=== PATIENT | male | born 1940 | race Caucasian/White ===

== ENCOUNTER 2023-05-16 10:03 | Day surgery (SDC) | payer OTHER, MEDICARE ==
[~2023-05-16 10:03] MED LIST: FERRIC CARBOXYMALTOSE 750 MG in SODIUM CHLORIDE 250 ML IVPB ONE
[2023-05-16 14:17] VITALS: TEMP 98.2
[2023-05-16 14:20] VITALS: BP 120/66; PULSE 52; RESP 18
== END 2023-05-16 12:20 | disposition home or self-care (01) ==
LOC: JONCNONCHE 10:03 → J7W 10:08 → JONCNONCHE 12:20
PROVIDERS: ATTEND Internal Medicine Hematology & Oncology
PROC: 3E033GC Introduction of Other Therapeutic Substance into Peripheral Vein, Percutaneous Approach (ICD-10-PCS; principal; 2023-05-16)
DX: D50.0 Iron deficiency anemia secondary to blood loss (chronic) (principal)
CPT/HCPCS: 96365; J1439

== ENCOUNTER 2023-05-23 10:15 | Day surgery (SDC) | payer OTHER, MEDICARE ==
[2023-05-23 11:38] LABS: HEMATOCRIT 23.2 % (35.4-49); HEMOGLOBIN 7.6 GM/dL (11.7-16.9); MCH 29.8 pg (25.7-33.7); MCHC 32.9 g/dl (32.0-35.9); MEAN CELL VOLUME 90.8 fl (80-96); MEAN PLT VOLUME 10.8 fl (7.5-11.1); PLATELET COUNT 103 10^3/uL (134-434); RBC 2.56 M/mm3 (4.00-5.60); RDW 19.1 % (11.9-15.9)
[2023-05-23 11:42] LABS: WHITE BLOOD COUNT 1.5 K/mm3 (4.0-10.0)
[2023-05-23 12:12] LABS: ANISOCYTOSIS 3+; MACROCYTOSIS 0
[2023-05-23 18:39] VITALS: BP 136/91; PULSE 60; RESP 18; TEMP 98.3
== END 2023-05-23 17:40 | disposition home or self-care (01) ==
LOC: JONCNONCHE 10:15 → J7W 10:15 → JONCNONCHE 17:40
PROVIDERS: ATTEND Internal Medicine Hematology & Oncology
PROC: 3E033GC Introduction of Other Therapeutic Substance into Peripheral Vein, Percutaneous Approach (ICD-10-PCS; principal; 2023-05-23)
DX: D50.9 Iron deficiency anemia, unspecified (principal)
CPT/HCPCS: 36415; 85025; 96365; J1439

== ENCOUNTER 2023-08-30 07:58 | Day surgery (SDC) | payer OTHER, MEDICARE ==
[2023-08-30 08:26] VITALS: BP 140/41; PULSE 58; RESP 20; TEMP 98.3
== END 2023-08-30 13:30 | disposition home or self-care (01) ==
LOC: JONCBLOOD 07:58 → J7W 08:01 → JONCBLOOD 13:30
PROVIDERS: ATTEND Internal Medicine Hematology & Oncology
PROC: 30233N1 Transfusion of Nonautologous Red Blood Cells into Peripheral Vein, Percutaneous Approach (ICD-10-PCS; principal; 2023-08-30)
DX: D46.9 Myelodysplastic syndrome, unspecified (principal); D50.9 Iron deficiency anemia, unspecified
CPT/HCPCS: 36430; 86850; 86900; 86901; 86922; P9058

== ENCOUNTER 2023-10-23 10:06 | Day surgery (SDC) | payer OTHER, MEDICARE ==
[~2023-10-23 10:06] MED LIST changes: +DECITABINE (DACOGEN) 10 MG/1 ML SQ SQ ONE; -FERRIC CARBOXYMALTOSE 750 MG in SODIUM CHLORIDE 250 ML IVPB ONE
[2023-10-23 11:01] LABS: HEMATOCRIT 19.4 % (35.4-49); MCH 30.2 pg (25.7-33.7); MCHC 32.2 g/dl (32.0-35.9); MEAN CELL VOLUME 93.8 fl (80-96); MEAN PLT VOLUME 10.2 fl (7.5-11.1); PLATELET COUNT 83 10^3/uL (134-434); RBC 2.07 M/mm3 (4.00-5.60); RDW 19.4 % (11.9-15.9)
[2023-10-23 11:08] LABS: WHITE BLOOD COUNT 0.7 K/mm3 (4.0-10.0)
[2023-10-23 11:09] LABS: HEMOGLOBIN 6.3 GM/dL (11.7-16.9)
[2023-10-23 11:16] LABS: POTASSIUM 4.8 mmol/L (3.5-5.1)
[2023-10-23 11:18] LABS: BLOOD UREA NITROGEN 34.1 mg/dL (7-18); CALCIUM 9.4 mg/dL (8.5-10.1)
[2023-10-23 11:22] LABS: CREATININE 1.2 mg/dL (0.55-1.3)
[2023-10-23 12:12] LABS: ALBUMIN 3.5 g/dl (3.4-5.0)
[2023-10-23 12:15] LABS: BILIRUBIN,DIRECT 0.1 mg/dL (0.0-0.2)
[2023-10-23 12:16] LABS: BILIRUBIN,TOTAL 0.2 mg/dL (0.2-1)
[2023-10-23 18:03] VITALS: RESP 20
[2023-10-23 18:13] VITALS: BP 108/74; PULSE 52; TEMP 98.8
== END 2023-10-23 16:40 | disposition home or self-care (01) ==
LOC: JONCNONCHE 10:06
PROVIDERS: ATTEND Internal Medicine Hematology & Oncology
DX: D46.9 Myelodysplastic syndrome, unspecified (principal)
CPT/HCPCS: 36415; 36430; 80048; 80076; 83615; 85025; 85045; 86850; 86900; 86901; 86922; 96372; J0894; P9058

== ENCOUNTER 2023-10-30 09:48 | Day surgery (SDC) | payer OTHER, MEDICARE ==
[2023-10-30 10:24] LABS: HEMATOCRIT 23.5 % (35.4-49); HEMOGLOBIN 7.8 GM/dL (11.7-16.9); MCH 30.2 pg (25.7-33.7); MEAN CELL VOLUME 91.4 fl (80-96); MEAN PLT VOLUME 9.6 fl (7.5-11.1); PLATELET COUNT 61 10^3/uL (134-434); RBC 2.57 M/mm3 (4.00-5.60); RDW 19.7 % (11.9-15.9); RETICULOCYTES 2.22 % (0.5-1.5)
[2023-10-30 10:29] LABS: WHITE BLOOD COUNT 0.7 K/mm3 (4.0-10.0)
[2023-10-30 10:40] LABS: CALCIUM 9.4 mg/dL (8.5-10.1); POTASSIUM 4.6 mmol/L (3.5-5.1)
[2023-10-30 10:44] LABS: CREATININE 1.2 mg/dL (0.55-1.3)
[2023-10-30 11:28] LABS: ALBUMIN 3.4 g/dl (3.4-5.0)
[2023-10-30 11:30] LABS: BILIRUBIN,DIRECT 0.1 mg/dL (0.0-0.2)
[2023-10-30 11:32] LABS: BILIRUBIN,TOTAL 0.3 mg/dL (0.2-1); TOT PROT 7.9 g/dl (6.4-8.2)
[2023-10-30 11:47] LABS: ANISOCYTOSIS 0; MACROCYTOSIS 0; ROULEAU 1+
[2023-10-30] MEDS: DECITABINE (DACOGEN) 10 MG/1 ML SQ SQ ONE (12:04)
[2023-10-30 15:28] VITALS: BP 136/60; PULSE 59; RESP 18; TEMP 97.6
== END 2023-10-30 12:35 | disposition home or self-care (01) ==
LOC: JONCNONCHE 09:48 → J7W 09:49 → JONCNONCHE 12:35
PROVIDERS: ATTEND Internal Medicine Hematology & Oncology
DX: Z51.11 Encounter for antineoplastic chemotherapy (principal); D46.9 Myelodysplastic syndrome, unspecified
CPT/HCPCS: 36415; 80048; 80053; 82248; 83615; 85025; 85045; 86850; 86900; 86901; 96401; J0894

== ENCOUNTER 2023-11-05 04:49 | Emergency (ER) | payer OTHER, MEDICARE ==
[2023-11-05 05:10] VITALS: BMI 28.4
[2023-11-05] MEDS ORDERED: ACETAMINOPHEN 325 MG TABLET (FP) ONE (05:39)
[2023-11-05] MEDS: ACETAMINOPHEN 500 MG TABLET (FP) PO ONE (05:48)
[2023-11-05 06:26] LABS: HEMATOCRIT 21.1 % (35.4-49); MCH 30.2 pg (25.7-33.7); MEAN CELL VOLUME 91.3 fl (80-96); MEAN PLT VOLUME 9.8 fl (7.5-11.1); PLATELET COUNT 58 10^3/uL (134-434); RBC 2.31 M/mm3 (4.00-5.60); RDW 20.5 % (11.9-15.9)
[2023-11-05 06:32] LABS: WHITE BLOOD COUNT 0.6 K/mm3 (4.0-10.0)
[2023-11-05 06:38] LABS: POTASSIUM 4.4 mmol/L (3.5-5.1)
[2023-11-05 06:40] LABS: CALCIUM 9.6 mg/dL (8.5-10.1)
[2023-11-05 06:41] LABS: ALBUMIN 3.2 g/dl (3.4-5.0)
[2023-11-05 06:44] LABS: CREATININE 1.1 mg/dL (0.55-1.3)
[2023-11-05 06:46] LABS: BILIRUBIN,TOTAL 0.4 mg/dL (0.2-1)
[2023-11-05 10:15] LABS: ANISOCYTOSIS 1+; MACROCYTOSIS 1+
[2023-11-05 11:34] VITALS: BP 146/60; PULSE 71; RESP 17; TEMP 97.2
== END 2023-11-05 13:55 | disposition short-term general hospital (02) ==
LOC: JER 04:49
DX: S27.1XXA Traumatic hemothorax, initial encounter (principal); S22.42XA Multiple fractures of ribs, left side, initial encounter for closed fracture; S22.039A Unspecified fracture of third thoracic vertebra, initial encounter for closed fracture; S00.03XA Contusion of scalp, initial encounter; R07.89 Other chest pain; M25.512 Pain in left shoulder; M54.50 Low back pain, unspecified; W19.XXXA Unspecified fall, initial encounter; Z20.822 Contact with and (suspected) exposure to COVID-19
CPT/HCPCS: 0241U-QW; 36415; 70450-TC; 71045-TC-FY; 72125-TC; 72128-TC; 72131-TC; 72170-TC-FY; 73030-TC-LT-FY; 80053; 84484; 85025; 93005; 93010; 99285-25

== ENCOUNTER 2023-12-17 09:36 | Day surgery (SDC) | payer OTHER, MEDICARE ==
[2023-12-17 10:21] VITALS: BP 110/44; PULSE 57; RESP 20; TEMP 98.7
== END 2023-12-17 15:51 | disposition home or self-care (01) ==
LOC: J7W 09:36 → JONCBLOOD 09:36
PROVIDERS: ATTEND Internal Medicine Hematology & Oncology
PROC: 30233N1 Transfusion of Nonautologous Red Blood Cells into Peripheral Vein, Percutaneous Approach (ICD-10-PCS; principal; 2023-12-17)
DX: D46.9 Myelodysplastic syndrome, unspecified (principal)
CPT/HCPCS: 36430; 86850; 86900; 86901; 86922; P9058

== ENCOUNTER 2024-01-01 09:58 | Day surgery (SDC) | payer OTHER, MEDICARE ==
[2024-01-01 10:50] LABS: HEMATOCRIT 27.9 % (35.4-49); HEMOGLOBIN 9.2 GM/dL (11.7-16.9); MCHC 33.1 g/dl (32.0-35.9); MEAN CELL VOLUME 93.7 fl (80-96); RBC 2.98 M/mm3 (4.00-5.60); RDW 21.3 % (11.9-15.9)
[2024-01-01 10:56] LABS: PLATELET COUNT 27 10^3/uL (134-434); WHITE BLOOD COUNT 0.4 K/mm3 (4.0-10.0)
[2024-01-01 10:57] LABS: RETICULOCYTES 0.84 % (0.5-1.5)
[2024-01-01 11:03] LABS: POTASSIUM 4.5 mmol/L (3.5-5.1)
[2024-01-01 11:04] LABS: CALCIUM 9.3 mg/dL (8.5-10.1)
[2024-01-01 11:05] LABS: BLOOD UREA NITROGEN 27.5 mg/dL (7-18)
[2024-01-01 11:35] LABS: ANISOCYTOSIS 0; MACROCYTOSIS 0
[2024-01-01 13:04] LABS: ALBUMIN 3.5 g/dl (3.4-5.0)
[2024-01-01 13:07] LABS: BILIRUBIN,DIRECT 0.1 mg/dL (0.0-0.2)
[2024-01-01 13:09] LABS: BILIRUBIN,TOTAL 0.3 mg/dL (0.2-1); TOT PROT 7.1 g/dl (6.4-8.2)
[2024-01-01] MEDS: DECITABINE (DACOGEN) 10 MG/1 ML SQ SQ ONE (13:17)
[2024-01-01 18:29] VITALS: BP 142/54; PULSE 52; RESP 18; TEMP 97.4
== END 2024-01-01 13:35 | disposition home or self-care (01) ==
LOC: JONCNONCHE 09:58 → J7W 10:12 → JONCNONCHE 13:35
PROVIDERS: ATTEND Internal Medicine Hematology & Oncology
DX: Z51.11 Encounter for antineoplastic chemotherapy (principal); D46.9 Myelodysplastic syndrome, unspecified
CPT/HCPCS: 36415; 80048; 80076; 83615; 85025; 85045; 86850; 86900; 86901; 96401; J0894

== ENCOUNTER 2024-01-08 11:25 | Day surgery (SDC) | payer OTHER, MEDICARE ==
[2024-01-08 12:17] LABS: HEMATOCRIT 24.3 % (35.4-49); HEMOGLOBIN 8.1 GM/dL (11.7-16.9); MCH 31.3 pg (25.7-33.7); MCHC 33.4 g/dl (32.0-35.9); MEAN CELL VOLUME 93.6 fl (80-96); MEAN PLT VOLUME 10.4 fl (7.5-11.1); PLATELET COUNT 39 10^3/uL (134-434); RDW 21.4 % (11.9-15.9); RETICULOCYTES 0.76 % (0.5-1.5)
[2024-01-08 12:21] LABS: WHITE BLOOD COUNT 0.5 K/mm3 (4.0-10.0)
[2024-01-08 12:31] LABS: POTASSIUM 4.7 mmol/L (3.5-5.1)
[2024-01-08 12:32] LABS: BLOOD UREA NITROGEN 36.8 mg/dL (7-18); CALCIUM 9.9 mg/dL (8.5-10.1)
[2024-01-08 12:34] LABS: ALBUMIN 3.7 g/dl (3.4-5.0)
[2024-01-08 12:35] LABS: ANISOCYTOSIS 1+; CREATININE 1.1 mg/dL (0.55-1.3); MACROCYTOSIS 0
[2024-01-08 12:37] LABS: BILIRUBIN,DIRECT 0.1 mg/dL (0.0-0.2)
[2024-01-08 12:39] LABS: BILIRUBIN,TOTAL 0.3 mg/dL (0.2-1); TOT PROT 7.7 g/dl (6.4-8.2)
[2024-01-08] MEDS: DECITABINE (DACOGEN) 10 MG/1 ML SQ SQ ONE (13:21)
[2024-01-08 16:09] VITALS: BP 122/46; PULSE 60; RESP 16; TEMP 97.8
== END 2024-01-08 13:30 | disposition home or self-care (01) ==
LOC: JONCNONCHE 11:25 → J7W 11:26 → JONCNONCHE 13:30
PROVIDERS: ATTEND Internal Medicine Hematology & Oncology
DX: Z51.11 Encounter for antineoplastic chemotherapy (principal); D46.9 Myelodysplastic syndrome, unspecified
CPT/HCPCS: 36415; 80048; 80076; 83615; 85025; 85045; 86850; 86900; 86901; 96401; J0894

== ENCOUNTER 2024-01-15 10:31 | Day surgery (SDC) | payer OTHER, MEDICARE ==
[2024-01-15 11:24] LABS: HEMATOCRIT 20.3 % (35.4-49); MCH 31.9 pg (25.7-33.7); MCHC 33.4 g/dl (32.0-35.9); MEAN CELL VOLUME 95.4 fl (80-96); PLATELET COUNT 50 10^3/uL (134-434); RBC 2.13 M/mm3 (4.00-5.60); RDW 21.8 % (11.9-15.9); RETICULOCYTES 1.22 % (0.5-1.5)
[2024-01-15 11:29] LABS: HEMOGLOBIN 6.8 GM/dL (11.7-16.9); WHITE BLOOD COUNT 0.5 K/mm3 (4.0-10.0)
[2024-01-15 11:37] LABS: CALCIUM 9.3 mg/dL (8.5-10.1); POTASSIUM 4.6 mmol/L (3.5-5.1)
[2024-01-15 11:38] LABS: BLOOD UREA NITROGEN 32.2 mg/dL (7-18)
[2024-01-15 11:40] LABS: ALBUMIN 3.8 g/dl (3.4-5.0)
[2024-01-15 11:43] LABS: BILIRUBIN,DIRECT 0.1 mg/dL (0.0-0.2)
[2024-01-15 11:45] LABS: BILIRUBIN,TOTAL 0.3 mg/dL (0.2-1); TOT PROT 7.5 g/dl (6.4-8.2)
[2024-01-15 11:54] LABS: ANISOCYTOSIS 3+; MACROCYTOSIS 0
[2024-01-15] MEDS: DECITABINE (DACOGEN) 10 MG/1 ML SQ SQ ONE (16:01)
[2024-01-15 16:43] VITALS: BP 128/51; PULSE 64; RESP 20; TEMP 97.7
== END 2024-01-15 16:47 | disposition home or self-care (01) ==
LOC: JONCNONCHE 10:31 → J7W 10:32 → JONCNONCHE 16:47
PROVIDERS: ATTEND Internal Medicine Hematology & Oncology
PROC: 3E01305 Introduction of Other Antineoplastic into Subcutaneous Tissue, Percutaneous Approach (ICD-10-PCS; principal; 2024-01-15)
PROC: 30233N1 Transfusion of Nonautologous Red Blood Cells into Peripheral Vein, Percutaneous Approach (ICD-10-PCS; 2024-01-15)
DX: Z51.11 Encounter for antineoplastic chemotherapy (principal); D46.9 Myelodysplastic syndrome, unspecified
CPT/HCPCS: 36415; 36430; 80048; 80076; 83615; 85025; 85045; 86850; 86900; 86901; 86922; 96401; J0894; P9038

== ENCOUNTER 2024-01-22 13:15 | Inpatient (IN) | payer OTHER, MEDICARE ==
[2024-01-22 13:30] VITALS: BMI 27.9
[2024-01-22 13:56] LABS: HEMATOCRIT 12.9 % (35.4-49); MCH 32.4 pg (25.7-33.7); MCHC 33.5 g/dl (32.0-35.9); MEAN CELL VOLUME 96.7 fl (80-96); MEAN PLT VOLUME 10.6 fl (7.5-11.1); PLATELET COUNT 59 10^3/uL (134-434); RBC 1.33 M/mm3 (4.00-5.60); RDW 23.4 % (11.9-15.9)
[2024-01-22 14:08] LABS: HEMOGLOBIN 4.3 GM/dL (11.7-16.9); WHITE BLOOD COUNT 0.7 K/mm3 (4.0-10.0)
[2024-01-22 14:21] LABS: POTASSIUM 4.6 mmol/L (3.5-5.1)
[2024-01-22 14:23] LABS: ALBUMIN 3.4 g/dl (3.4-5.0); CALCIUM 9.6 mg/dL (8.5-10.1); MAGNESIUM 2.1 mg/dL (1.8-2.4)
[2024-01-22 14:24] LABS: BLOOD UREA NITROGEN 52.3 mg/dL (7-18)
[2024-01-22 14:27] LABS: CREATININE 1.4 mg/dL (0.55-1.3)
[2024-01-22 14:28] LABS: BILIRUBIN,TOTAL 0.2 mg/dL (0.2-1); TOT PROT 6.7 g/dl (6.4-8.2)
[2024-01-22] MEDS ORDERED: DOCUSATE SODIUM 100 MG CAPSULE (FP) PO PRN (16:38)
[2024-01-22 18:33] LABS: URINE APPEARANCE CLEAR; URINE BILIRUBIN NEGATIVE (NEGATIVE); URINE COLOR YELLOW; URINE GLUCOSE (UA) NEGATIVE (NEGATIVE); URINE KETONE NEGATIVE (NEGATIVE); URINE LEUK ESTERASE NEGATIVE (NEGATIVE); URINE NITRITE NEGATIVE (NEGATIVE); URINE PROTEIN NEGATIVE (NEGATIVE); URINE UROBILINOGEN 0.2 mg/dL (0.2-1.0)
[2024-01-22] MEDS ORDERED: PIPERACILLIN/TAZOB 4.5 GM 4.5 GM/100 ML BAG IVPB ONE (19:28)
[2024-01-22] MEDS ORDERED: FERROUS SO4 325 MG TABLET (FP) PO SCH (22:00)
[2024-01-22] MEDS ORDERED: ACYCLOVIR 200 MG CAPSULE ONE ×2 (22:05→22:06)
[2024-01-22] MEDS ORDERED: FERROUS SO4 325 MG TABLET (FP) ONE (22:06)
[2024-01-22] MEDS: ACYCLOVIR 400 MG TABLET PO SCH (22:14)
[2024-01-22] MEDS: FERROUS SO4 325 MG TABLET (FP) PO SCH (22:14)
[2024-01-23 06:32] LABS: HEMATOCRIT 20.2 % (35.4-49); MCH 31.3 pg (25.7-33.7); MEAN CELL VOLUME 92.1 fl (80-96); MEAN PLT VOLUME 9.9 fl (7.5-11.1); PLATELET COUNT 39 10^3/uL (134-434); RBC 2.19 M/mm3 (4.00-5.60); RDW 16.4 % (11.9-15.9)
[2024-01-23 06:37] LABS: WHITE BLOOD COUNT 0.5 K/mm3 (4.0-10.0)
[2024-01-23 06:38] LABS: HEMOGLOBIN 6.8 GM/dL (11.7-16.9); POTASSIUM 4.3 mmol/L (3.5-5.1)
[2024-01-23 06:40] LABS: BLOOD UREA NITROGEN 34.6 mg/dL (7-18); CALCIUM 9.1 mg/dL (8.5-10.1)
[2024-01-23 06:43] LABS: CREATININE 0.9 mg/dL (0.55-1.3)
[2024-01-23] MEDS: LEVOTHYROXINE NA 112 MCG TABLET (FP) PO SCH (07:00)
[2024-01-23] MEDS: FLUCONAZOLE 100 MG TABLET (UD) PO SCH (10:15)
[2024-01-23] MEDS: amLODIPine BESYLATE 10 MG TABLET (FP) PO SCH (10:16)
[2024-01-23] MEDS: ESCITALOPRAM OXALATE 10 MG TABLET PO SCH (10:16)
[2024-01-23] MEDS: ALLOPURINOL 300 MG TABLET (FP) PO SCH (10:16)
[2024-01-23] MEDS: FOLIC ACID 1 MG TABLET (FP) PO SCH (10:16)
[2024-01-23 10:28] LABS: ANISOCYTOSIS 1+; MACROCYTOSIS 1+
[2024-01-23 12:48] VITALS: BP 156/68; PULSE 85; RESP 18; TEMP 97.5
== END 2024-01-23 12:30 | disposition home or self-care (01) | DRG 809 ==
LOC: JER 13:15 → JERBED 15:40
PROVIDERS: ADMIT Internal Medicine; ATTEND Nurse Practitioner Acute Care
PROC: 30233N1 Transfusion of Nonautologous Red Blood Cells into Peripheral Vein, Percutaneous Approach (ICD-10-PCS; principal; 2024-01-22)
DX: D61.818 Other pancytopenia (principal); N17.9 Acute kidney failure, unspecified; D46.9 Myelodysplastic syndrome, unspecified; E11.9 Type 2 diabetes mellitus without complications; I10 Essential (primary) hypertension; I25.10 Atherosclerotic heart disease of native coronary artery without angina pectoris; D64.9 Anemia, unspecified
CPT/HCPCS: 36415; 36430; 71045-TC-FY; 76775-TC; 80048; 80053; 81003; 83615; 83735; 85025; 85027; 85045; 86850; 86900; 86901; 86922; 88300-TC; 93005; 93010; 99285-25; J0894; P9038; P9058

== ENCOUNTER 2024-01-29 13:17 | Inpatient (IN) | payer OTHER, MEDICARE ==
[2024-01-29 14:36] LABS: HEMATOCRIT 14.6 % (35.4-49); INR 1.25 (0.83-1.09); MCH 32.8 pg (25.7-33.7); MCHC 33.7 g/dl (32.0-35.9); MEAN CELL VOLUME 97.1 fl (80-96); MEAN PLT VOLUME 10.9 fl (7.5-11.1); PLATELET COUNT 53 10^3/uL (134-434); RDW 20.9 % (11.9-15.9)
[2024-01-29 14:38] LABS: HEMOGLOBIN 4.9 GM/dL (11.7-16.9); WHITE BLOOD COUNT 0.5 K/mm3 (4.0-10.0)
[2024-01-29 14:51] LABS: POTASSIUM 4.8 mmol/L (3.5-5.1)
[2024-01-29 14:54] LABS: ALBUMIN 2.8 g/dl (3.4-5.0); BLOOD UREA NITROGEN 47.3 mg/dL (7-18); CALCIUM 8.6 mg/dL (8.5-10.1)
[2024-01-29 14:57] LABS: CREATININE 1.2 mg/dL (0.55-1.3)
[2024-01-29 14:59] LABS: BILIRUBIN,TOTAL 0.2 mg/dL (0.2-1)
[2024-01-29] MEDS ORDERED: DOCUSATE SODIUM 100 MG CAPSULE (FP) PO PRN (15:56)
[2024-01-29 17:28] VITALS: BMI 27.1
[2024-01-29] MEDS: FERROUS SO4 325 MG TABLET (FP) PO SCH (21:06)
[2024-01-30] MEDS: LEVOTHYROXINE NA 112 MCG TABLET (FP) PO SCH (06:20)
[2024-01-30 08:48] LABS: HEMATOCRIT 18.7 % (35.4-49); MCH 31.9 pg (25.7-33.7); MCHC 35.3 g/dl (32.0-35.9); MEAN CELL VOLUME 90.2 fl (80-96); MEAN PLT VOLUME 9.3 fl (7.5-11.1); RBC 2.08 M/mm3 (4.00-5.60)
[2024-01-30 08:55] LABS: HEMOGLOBIN 6.6 GM/dL (11.7-16.9); PLATELET COUNT 35 10^3/uL (134-434); WHITE BLOOD COUNT 0.4 K/mm3 (4.0-10.0)
[2024-01-30 08:56] LABS: POTASSIUM 4.1 mmol/L (3.5-5.1)
[2024-01-30 08:58] LABS: CALCIUM 8.5 mg/dL (8.5-10.1)
[2024-01-30 08:59] LABS: BLOOD UREA NITROGEN 31.7 mg/dL (7-18)
[2024-01-30 09:02] LABS: CREATININE 0.8 mg/dL (0.55-1.3)
[2024-01-30] MEDS: FOLIC ACID 1 MG TABLET (FP) PO SCH (10:17)
[2024-01-30] MEDS: ALLOPURINOL 300 MG TABLET (FP) PO SCH (10:17)
[2024-01-30] MEDS: ESCITALOPRAM OXALATE 10 MG TABLET PO SCH (10:17)
[2024-01-30] MEDS: amLODIPine BESYLATE 10 MG TABLET (FP) PO SCH (10:17)
[2024-01-30 16:45] VITALS: RESP 18
[2024-01-30 17:03] LABS: HEMOGLOBIN 8.3 GM/dL (11.7-16.9); MCH 31.2 pg (25.7-33.7); MCHC 34.5 g/dl (32.0-35.9); MEAN CELL VOLUME 90.4 fl (80-96); MEAN PLT VOLUME 9.6 fl (7.5-11.1); PLATELET COUNT 39 10^3/uL (134-434); RBC 2.65 M/mm3 (4.00-5.60); RDW 14.7 % (11.9-15.9)
[2024-01-30 17:08] LABS: WHITE BLOOD COUNT 0.5 K/mm3 (4.0-10.0)
[2024-01-30 17:48] LABS: ANISOCYTOSIS 1+; MACROCYTOSIS 0
[2024-01-31 06:40] VITALS: BP 143/65; PULSE 61; TEMP 97.7
[2024-01-31 07:50] LABS: HEMATOCRIT 22.1 % (35.4-49); HEMOGLOBIN 7.8 GM/dL (11.7-16.9); MCH 31.8 pg (25.7-33.7); MCHC 35.3 g/dl (32.0-35.9); MEAN CELL VOLUME 89.9 fl (80-96); PLATELET COUNT 40 10^3/uL (134-434); RBC 2.46 M/mm3 (4.00-5.60); RDW 14.9 % (11.9-15.9)
[2024-01-31 08:01] LABS: WHITE BLOOD COUNT 0.4 K/mm3 (4.0-10.0)
[2024-01-31 08:10] LABS: POTASSIUM 4.2 mmol/L (3.5-5.1)
[2024-01-31 08:13] LABS: BLOOD UREA NITROGEN 30.9 mg/dL (7-18); CALCIUM 8.8 mg/dL (8.5-10.1)
[2024-01-31 08:18] LABS: CREATININE 0.8 mg/dL (0.55-1.3)
== END 2024-01-31 10:48 | disposition home or self-care (01) | DRG 812 ==
LOC: JER 13:17 → JERBED 14:46 → J7W 17:06 → OBSVTOIN 01-30 10:08
PROVIDERS: ADMIT Internal Medicine; ATTEND Internal Medicine
DX: D46.9 Myelodysplastic syndrome, unspecified (principal); N17.9 Acute kidney failure, unspecified; E03.9 Hypothyroidism, unspecified; E11.9 Type 2 diabetes mellitus without complications; I10 Essential (primary) hypertension; D69.6 Thrombocytopenia, unspecified; D63.0 Anemia in neoplastic disease; D70.9 Neutropenia, unspecified
CPT/HCPCS: 36415; 36430; 80048; 80053; 80076; 83615; 85025; 85027; 85045; 85610; 86850; 86900; 86901; 86922; 99285-25; G0378; J0894; P9038; P9058

== ENCOUNTER 2024-02-21 14:55 | Observation (INO) | payer OTHER, MEDICARE ==
[2024-02-21 15:11] VITALS: RESP 18; BMI 24.9
[2024-02-21 15:38] LABS: HEMATOCRIT 15.7 % (35.4-49); MCH 31.1 pg (25.7-33.7); MCHC 34.1 g/dl (32.0-35.9); MEAN CELL VOLUME 91.2 fl (80-96); MEAN PLT VOLUME 10.3 fl (7.5-11.1); PLATELET COUNT 45 10^3/uL (134-434); RBC 1.72 M/mm3 (4.00-5.60); RDW 21.7 % (11.9-15.9)
[2024-02-21 15:40] LABS: WHITE BLOOD COUNT 0.6 K/mm3 (4.0-10.0)
[2024-02-21 15:41] LABS: HEMOGLOBIN 5.3 GM/dL (11.7-16.9)
[2024-02-21 15:58] LABS: POTASSIUM 4.4 mmol/L (3.5-5.1)
[2024-02-21 15:59] LABS: ANISOCYTOSIS 3+; MACROCYTOSIS 1+
[2024-02-21 16:00] LABS: BLOOD UREA NITROGEN 41.1 mg/dL (7-18)
[2024-02-21 16:05] LABS: BILIRUBIN,TOTAL 0.2 mg/dL (0.2-1); TOT PROT 6.8 g/dl (6.4-8.2)
[2024-02-21 16:25] LABS: CREATININE 1.6 mg/dL (0.55-1.3)
[2024-02-21] MEDS ORDERED: MELATONIN 1 MG TABLET PO PRN (16:58)
[2024-02-21] MEDS ORDERED: DOCUSATE SODIUM 100 MG CAPSULE (FP) PO PRN (16:58)
[2024-02-21] MEDS ORDERED: ACYCLOVIR 200 MG CAPSULE ONE (22:01)
[2024-02-21] MEDS: ACYCLOVIR 400 MG TABLET PO SCH (22:05)
[2024-02-22 06:07] VITALS: BP 142/59; PULSE 72; TEMP 98.2
[2024-02-22 07:16] LABS: HEMATOCRIT 19.2 % (35.4-49); MCH 30.4 pg (25.7-33.7); MCHC 34.9 g/dl (32.0-35.9); MEAN CELL VOLUME 87.1 fl (80-96); PLATELET COUNT 39 10^3/uL (134-434)
[2024-02-22 07:35] LABS: WHITE BLOOD COUNT 0.6 K/mm3 (4.0-10.0)
[2024-02-22 07:36] LABS: HEMOGLOBIN 6.7 GM/dL (11.7-16.9)
[2024-02-22 07:40] LABS: CHLORIDE 106 mmol/L (98-107); POTASSIUM 3.9 mmol/L (3.5-5.1); SODIUM 137 mmol/L (136-145)
[2024-02-22 08:03] LABS: ALBUMIN 2.6 g/dl (3.4-5.0); ANION GAP 6 mmol/L (4-13); BLOOD UREA NITROGEN 29.8 mg/dL (7-18); CALCIUM 8.7 mg/dL (8.5-10.1); CO2 26 mmol/L (21-32); GLUCOSE,RANDOM 93 mg/dL (74-106)
[2024-02-22 08:05] LABS: SGOT/AST 18 U/L (15-37); SGPT/ALT < 6 U/L (13-61)
[2024-02-22 08:07] LABS: BILIRUBIN,TOTAL 0.4 mg/dL (0.2-1)
[2024-02-22 08:08] LABS: ALK PHOS 50 U/L (45-117)
[2024-02-22] MEDS ORDERED: FUROSEMIDE 40 MG/4 ML INJECTABLE VIAL ONE (08:27)
[2024-02-22] MEDS ORDERED: TAMSULOSIN HCL 0.4 MG CAP ONE (08:27)
[2024-02-22] MEDS: LEVOTHYROXINE NA 112 MCG TABLET (FP) PO SCH (08:55)
[2024-02-22] MEDS: FUROSEMIDE 40 MG/4 ML INJECTABLE VIAL IVPUSH SCH (09:06)
[2024-02-22] MEDS: TAMSULOSIN HCL 0.4 MG CAP PO SCH (09:06)
[2024-02-22] MEDS ORDERED: PANTOPRAZOLE 40 MG TABLET PO ONE (12:02)
[2024-02-22] MEDS ORDERED: FLUCONAZOLE 100 MG TABLET (UD) ONE (12:02)
[2024-02-22] MEDS ORDERED: LOSARTAN POTASSIUM 50 MG TABLET ONE (12:03)
[2024-02-22] MEDS ORDERED: ACYCLOVIR 200 MG CAPSULE ONE (12:03)
[2024-02-22] MEDS ORDERED: ESCITALOPRAM OXALATE 10 MG TABLET ONE (12:03)
[2024-02-22] MEDS: FLUCONAZOLE 100 MG TABLET (UD) PO SCH (12:09)
[2024-02-22] MEDS: LOSARTAN POTASSIUM 50 MG TABLET PO SCH (12:09)
[2024-02-22] MEDS: PANTOPRAZOLE 40 MG TABLET PO SCH (12:09)
[2024-02-22] MEDS: ESCITALOPRAM OXALATE 10 MG TABLET PO SCH (12:09)
[2024-02-22] MEDS: FENOFIBRIC ACID 135 MG CAP PO SCH (12:10)
[2024-02-22] MEDS: ALLOPURINOL 100 MG TABLET (FP) PO SCH (12:11)
[2024-02-22] MEDS ORDERED: amLODIPine BESYLATE 10 MG TABLET (FP) ONE (12:12)
[2024-02-22] MEDS: amLODIPine BESYLATE 10 MG TABLET (FP) PO SCH (12:24)
[2024-02-22 13:16] LABS: HEMATOCRIT 24.3 % (35.4-49); HEMOGLOBIN 8.5 GM/dL (11.7-16.9); MCHC 34.9 g/dl (32.0-35.9); MEAN PLT VOLUME 9.4 fl (7.5-11.1); PLATELET COUNT 37 10^3/uL (134-434); RBC 2.83 M/mm3 (4.00-5.60); RDW 14.9 % (11.9-15.9)
[2024-02-22 13:19] LABS: WHITE BLOOD COUNT 0.7 K/mm3 (4.0-10.0)
== END 2024-02-22 19:23 | disposition home or self-care (01) ==
LOC: JER 14:55 → JERBED 16:04
PROVIDERS: ATTEND Internal Medicine
PROC: 30233N1 Transfusion of Nonautologous Red Blood Cells into Peripheral Vein, Percutaneous Approach (ICD-10-PCS; principal; 2024-02-21)
PROC: 3E033GC Introduction of Other Therapeutic Substance into Peripheral Vein, Percutaneous Approach (ICD-10-PCS; 2024-02-21)
DX: D46.9 Myelodysplastic syndrome, unspecified (principal); N17.9 Acute kidney failure, unspecified; I10 Essential (primary) hypertension
CPT/HCPCS: 36415; 36430; 80053; 85025; 85027; 86850; 86900; 86901; 86922; 93005; 93010; 96374; 99285-25; G0378; P9058

== ENCOUNTER 2024-03-04 10:58 | Day surgery (SDC) | payer OTHER, MEDICARE ==
[2024-03-04 12:12] LABS: HEMATOCRIT 25.8 % (35.4-49); HEMOGLOBIN 8.7 GM/dL (11.7-16.9); MCH 29.2 pg (25.7-33.7); MCHC 33.7 g/dl (32.0-35.9); MEAN CELL VOLUME 86.5 fl (80-96); MEAN PLT VOLUME 8.8 fl (7.5-11.1); PLATELET COUNT 39 10^3/uL (134-434); RBC 2.99 M/mm3 (4.00-5.60); RDW 15.6 % (11.9-15.9); RETICULOCYTES 0.84 % (0.5-1.5)
[2024-03-04 12:16] LABS: WHITE BLOOD COUNT 0.9 K/mm3 (4.0-10.0)
[2024-03-04] MEDS: LUSPATERCEPT AAMT SQ ONE (12:17)
[2024-03-04 12:29] LABS: CHLORIDE 102 mmol/L (98-107); POTASSIUM 4.5 mmol/L (3.5-5.1); SODIUM 134 mmol/L (136-145)
[2024-03-04 12:32] LABS: ALBUMIN 2.3 g/dl (3.4-5.0); ANION GAP 7 mmol/L (4-13); BLOOD UREA NITROGEN 26.4 mg/dL (7-18); CALCIUM 8.3 mg/dL (8.5-10.1); CO2 25 mmol/L (21-32); GLUCOSE,RANDOM 127 mg/dL (74-106)
[2024-03-04 12:35] LABS: BILIRUBIN,DIRECT 0.2 mg/dL (0.0-0.2); CREATININE 1.2 mg/dL (0.55-1.3); SGOT/AST 51 U/L (15-37); SGPT/ALT 24 U/L (13-61)
[2024-03-04 12:36] LABS: BILIRUBIN,TOTAL 0.4 mg/dL (0.2-1)
[2024-03-04 12:37] LABS: TOT PROT 6.4 g/dl (6.4-8.2)
[2024-03-04 12:39] LABS: LDH 306 U/L (87-246)
[2024-03-04 12:46] LABS: ALK PHOS 102 U/L (45-117)
[2024-03-04 14:31] VITALS: BP 132/65; PULSE 66; RESP 18; TEMP 98.1
== END 2024-03-04 13:25 | disposition home or self-care (01) ==
LOC: JONCCHEMO 10:58 → J7W 10:59 → JONCCHEMO 13:25
PROVIDERS: ATTEND Internal Medicine Hematology & Oncology
PROC: 3E013GC Introduction of Other Therapeutic Substance into Subcutaneous Tissue, Percutaneous Approach (ICD-10-PCS; principal; 2024-03-04)
DX: D46.9 Myelodysplastic syndrome, unspecified (principal)
CPT/HCPCS: 36415; 80048; 80076; 83615; 85025; 85045; 86850; 86900; 86901; 96372; J0896

== ENCOUNTER 2024-03-17 08:03 | Day surgery (SDC) | payer OTHER, MEDICARE ==
[2024-03-17 09:28] LABS: HEMATOCRIT 22.1 % (35.4-49); HEMOGLOBIN 7.4 GM/dL (11.7-16.9); MCH 29.6 pg (25.7-33.7); MCHC 33.4 g/dl (32.0-35.9); MEAN CELL VOLUME 88.8 fl (80-96); MEAN PLT VOLUME 8.7 fl (7.5-11.1); RBC 2.49 M/mm3 (4.00-5.60); RDW 14.8 % (11.9-15.9)
[2024-03-17 10:15] LABS: WHITE BLOOD COUNT 1.2 K/mm3 (4.0-10.0)
[2024-03-17] MEDS: SODIUM CHLORIDE 1,000 ML IV ONE (11:00)
[2024-03-17 11:28] LABS: ANISOCYTOSIS 0; MACROCYTOSIS 0
[2024-03-17 11:42] LABS: PLATELET COUNT 15 10^3/uL (134-434)
[2024-03-17 16:29] VITALS: RESP 20
[2024-03-17 16:43] VITALS: BP 145/56; PULSE 71; TEMP 98.3
== END 2024-03-17 16:15 | disposition home or self-care (01) ==
LOC: JONCCHEMO 08:03 → J7W 08:04 → JONCCHEMO 16:15
PROVIDERS: ATTEND Internal Medicine Hematology & Oncology
PROC: 30233N1 Transfusion of Nonautologous Red Blood Cells into Peripheral Vein, Percutaneous Approach (ICD-10-PCS; principal; 2024-03-17)
DX: D46.9 Myelodysplastic syndrome, unspecified (principal)
CPT/HCPCS: 36415; 36430; 85025; 86922; P9037; P9058

== ENCOUNTER 2024-03-25 09:41 | Day surgery (SDC) | payer OTHER, MEDICARE ==
[2024-03-25 10:38] LABS: HEMATOCRIT 21.9 % (35.4-49); HEMOGLOBIN 7.6 GM/dL (11.7-16.9); MCH 29.6 pg (25.7-33.7); MCHC 34.6 g/dl (32.0-35.9); MEAN CELL VOLUME 85.5 fl (80-96); MEAN PLT VOLUME 8.2 fl (7.5-11.1); RBC 2.56 M/mm3 (4.00-5.60); RETICULOCYTES 0.56 % (0.5-1.5)
[2024-03-25 10:48] LABS: PLATELET COUNT 33 10^3/uL (134-434); WHITE BLOOD COUNT 1.1 K/mm3 (4.0-10.0)
[2024-03-25 10:53] LABS: CHLORIDE 103 mmol/L (98-107); SODIUM 136 mmol/L (136-145)
[2024-03-25 10:56] LABS: ALBUMIN 2.4 g/dl (3.4-5.0); ANION GAP 8 mmol/L (4-13); BLOOD UREA NITROGEN 20.3 mg/dL (7-18); CALCIUM 8.4 mg/dL (8.5-10.1); CO2 25 mmol/L (21-32); GLUCOSE,RANDOM 121 mg/dL (74-106)
[2024-03-25 10:59] LABS: BILIRUBIN,DIRECT 0.1 mg/dL (0.0-0.2); CREATININE 1.2 mg/dL (0.55-1.3); SGOT/AST 22 U/L (15-37); SGPT/ALT 11 U/L (13-61)
[2024-03-25 11:01] LABS: BILIRUBIN,TOTAL 0.3 mg/dL (0.2-1); TOT PROT 6.9 g/dl (6.4-8.2)
[2024-03-25 11:02] LABS: ALK PHOS 101 U/L (45-117)
[2024-03-25 11:04] LABS: LDH 259 U/L (87-246)
[2024-03-25 11:19] LABS: ANISOCYTOSIS 0; HELMET CELLS 0; HOWELL-JOLLY BODIES 0; MACROCYTOSIS 0; OVALOCYTE 0; ROULEAU 0; SICKELED CELLS 0; TARGET CELLS 0; TEAR DROP CELLS 0; TOXIC GRANULATION 0
[2024-03-25] MEDS: LUSPATERCEPT AAMT SQ ONE (11:33)
[2024-03-26 07:41] VITALS: BP 111/51; PULSE 60; RESP 16; TEMP 97.7
== END 2024-03-25 14:15 | disposition home or self-care (01) ==
LOC: JONCNONCHE 09:41 → J7W 09:43 → JONCNONCHE 14:15
PROVIDERS: ATTEND Internal Medicine Hematology & Oncology
PROC: 3E013GC Introduction of Other Therapeutic Substance into Subcutaneous Tissue, Percutaneous Approach (ICD-10-PCS; principal; 2024-03-25)
PROC: 30233R1 Transfusion of Nonautologous Platelets into Peripheral Vein, Percutaneous Approach (ICD-10-PCS; 2024-03-25)
DX: D46.9 Myelodysplastic syndrome, unspecified (principal)
CPT/HCPCS: 36415; 36430; 80048; 80076; 83615; 85025; 85045; 86850; 86900; 86901; 96372; J0896; P9037

== ENCOUNTER 2024-03-28 10:30 | Emergency (ER) | payer OTHER, MEDICARE ==
[2024-03-28 10:40] VITALS: PULSE 66; TEMP 97.4; BMI 24.1
[2024-03-28 16:01] VITALS: BP 124/66; RESP 19
== END 2024-03-28 20:19 | disposition home or self-care (01) ==
LOC: JER 10:30
DX: D69.6 Thrombocytopenia, unspecified (principal)
CPT/HCPCS: 36430; 86850; 86900; 86901; 99282-25; P9034

== ENCOUNTER 2024-04-01 08:37 | Inpatient (IN) | payer OTHER, MEDICARE ==
[2024-04-01] MEDS ORDERED: PANTOPRAZOLE SODIUM 40 MG VIAL ONE (10:06)
[2024-04-01] MEDS ORDERED: ONDANSETRON 4 MG/2 ML VIAL ONE (10:06)
[2024-04-01] MEDS: ONDANSETRON 4 MG/2 ML VIAL IVPUSH ONE (11:21)
[2024-04-01] MEDS: PANTOPRAZOLE SODIUM 40 MG VIAL IVPUSH ONE (11:21)
[2024-04-01] MEDS: ACETAMINOPHEN 1000 MG/100 ML BAG IVPB ONE (11:22)
[2024-04-01] MEDS ORDERED: ACETAMINOPHEN INJECTION 100 ML IVPB ONE (11:24)
[2024-04-01] MEDS ORDERED: CEFEPIME 2 GM/100 ML BAG IVPB ONE (11:25)
[2024-04-01 11:27] LABS: INR 1.59 (0.83-1.09)
[2024-04-01 11:30] LABS: ACTIVATED PTT 25.2 SECONDS (25.2-36.5)
[2024-04-01 11:33] LABS: HEMATOCRIT 12.4 % (35.4-49); MCH 29.4 pg (25.7-33.7); MCHC 33.4 g/dl (32.0-35.9); MEAN CELL VOLUME 88.2 fl (80-96); RDW 15.2 % (11.9-15.9)
[2024-04-01] MEDS: CEFEPIME HCL 2 GM VIAL (RESTRICTED TO ID) IVPB ONE (11:33)
[2024-04-01 11:40] LABS: HEMOGLOBIN 4.1 GM/dL (11.7-16.9); PLATELET COUNT 7 10^3/uL (134-434); WHITE BLOOD COUNT 1.8 K/mm3 (4.0-10.0)
[2024-04-01 11:44] LABS: CALCIUM 8.6 mg/dL (8.5-10.1)
[2024-04-01 11:47] LABS: CREATININE 1.8 mg/dL (0.55-1.3)
[2024-04-01 11:50] LABS: BILIRUBIN,TOTAL 0.2 mg/dL (0.2-1); TOT PROT 6.5 g/dl (6.4-8.2)
[2024-04-01 12:23] LABS: ANISOCYTOSIS 2+; MACROCYTOSIS 2+; OVALOCYTE 1+; TARGET CELLS 1+
[2024-04-01] MEDS ORDERED: VANCOMYCIN 1 GRAM (PRE-DOCKED) 1,000 MG/250 ML BAG IVPB ONE (12:49)
[2024-04-01] MEDS: VANCOMYCIN 1,000 MG in DEXTROSE 5%-WATER - 250 ML IVPB ONE (13:11)
[2024-04-01 21:45] LABS: BASO % 1.4 % (0-2.0); HEMATOCRIT 14.5 % (35.4-49); MCH 29.6 pg (25.7-33.7); MCHC 34.1 g/dl (32.0-35.9); MEAN CELL VOLUME 86.7 fl (80-96); MEAN PLT VOLUME 6.5 fl (7.5-11.1); MONO % 30.7 % (3.8-10.2); NEUT % 6.9 % (42.8-82.8); PLATELET COUNT 43 10^3/uL (134-434); RBC 1.67 M/mm3 (4.00-5.60); RDW 14.1 % (11.9-15.9)
[2024-04-01 22:10] LABS: HEMOGLOBIN 4.9 GM/dL (11.7-16.9)
[2024-04-01 22:16] LABS: URINE APPEARANCE CLEAR; URINE BILIRUBIN NEGATIVE (NEGATIVE); URINE COLOR YELLOW; URINE GLUCOSE (UA) NEGATIVE (NEGATIVE); URINE KETONE NEGATIVE (NEGATIVE); URINE LEUK ESTERASE NEGATIVE (NEGATIVE); URINE NITRITE NEGATIVE (NEGATIVE); URINE PROTEIN NEGATIVE (NEGATIVE); URINE UROBILINOGEN 0.2 mg/dL (0.2-1.0)
[2024-04-01] MEDS: MUPIROCIN 2% TOPICAL OINTMENT FOR DECOLONIZATION NS SCH (23:09)
[2024-04-01] MEDS: CHLORHEXIDINE GLUCONATE 4% CLEANSER FOR DECOLONIZATION TP SCH (23:10)
[2024-04-01] MEDS: PANTOPRAZOLE SODIUM 40 MG VIAL IVPUSH SCH (23:11)
[2024-04-01] MEDS: INSULIN ASPART SLIDING SCALE (NOVOLOG) 1 VIAL SQ SCH (23:11)
[2024-04-01] MEDS: ACYCLOVIR 400 MG TABLET PO SCH (23:11)
[2024-04-02] MEDS: CEFEPIME 2 GM in SODIUM CHLORIDE 100 ML IVPB SCH (00:04)
[2024-04-02] MEDS: SODIUM CHLORIDE 1,000 ML IV SCH (00:27)
[2024-04-02] MEDS: MELATONIN 1 MG TABLET PO PRN (00:28)
[2024-04-02] MEDS: ACETAMINOPHEN 325 MG TABLET (FP) PO PRN (03:13)
[2024-04-02 03:48] LABS: ANISOCYTOSIS 2+; MACROCYTOSIS 0; ROULEAU 1+
[2024-04-02] MEDS: LEVOTHYROXINE NA 50 MCG TABLET (FP) PO SCH (06:43)
[2024-04-02 08:09] LABS: HEMATOCRIT 20.5 % (35.4-49); HEMOGLOBIN 7.2 GM/dL (11.7-16.9); MCH 29.5 pg (25.7-33.7); MCHC 35.3 g/dl (32.0-35.9); MEAN CELL VOLUME 83.7 fl (80-96); MEAN PLT VOLUME 6.9 fl (7.5-11.1); RBC 2.44 M/mm3 (4.00-5.60); RDW 14.2 % (11.9-15.9)
[2024-04-02] MEDS: TAMSULOSIN HCL 0.4 MG CAP PO SCH (08:09)
[2024-04-02 08:30] LABS: POTASSIUM 4.4 mmol/L (3.5-5.1)
[2024-04-02 08:35] LABS: BLOOD UREA NITROGEN 52.9 mg/dL (7-18); CALCIUM 8.2 mg/dL (8.5-10.1); MAGNESIUM 1.9 mg/dL (1.8-2.4)
[2024-04-02 08:36] LABS: ALBUMIN 1.8 g/dl (3.4-5.0)
[2024-04-02 08:39] LABS: BILIRUBIN,TOTAL 0.5 mg/dL (0.2-1); CREATININE 1.1 mg/dL (0.55-1.3)
[2024-04-02 08:40] LABS: TOT PROT 5.4 g/dl (6.4-8.2)
[2024-04-02 08:46] LABS: PLATELET COUNT 27 10^3/uL (134-434); WHITE BLOOD COUNT 1.9 K/mm3 (4.0-10.0)
[2024-04-02] MEDS: FLUCONAZOLE 100 MG TABLET (UD) PO SCH (09:45)
[2024-04-02] MEDS: FENOFIBRIC ACID 135 MG CAP PO SCH (09:46)
[2024-04-02] MEDS: FOLIC ACID 1 MG TABLET (FP) PO SCH (09:47)
[2024-04-02] MEDS: ESCITALOPRAM OXALATE 10 MG TABLET PO SCH (09:47)
[2024-04-02 09:48] LABS: ANISOCYTOSIS 0; MACROCYTOSIS 0
[2024-04-02] MEDS: CEFEPIME HCL 2 GM VIAL (RESTRICTED TO ID) IVPB SCH (10:44)
[2024-04-02] MEDS: INSULIN ASPART SLIDING SCALE (NOVOLOG) 1 VIAL SQ SCH (10:44)
[2024-04-02] MEDS ORDERED: VANCOMYCIN/WATER FOR INJ (PEG) 1 GM/200 ML BAG IVPB ONE (13:00)
[2024-04-02] MEDS: CEFEPIME 2 GM in DEXTROSE 5%-WATER 100 ML IVPB SCH (13:06)
[2024-04-02] MEDS: LIDOCAINE 5% TOPICAL PATCH TP SCH (13:08)
[2024-04-02] MEDS: VANCOMYCIN/WATER FOR INJ (PEG) 1,000 MG/200 ML BAG IVPB SCH (13:08)
[2024-04-02] MEDS: AZITHROMYCIN IVPB 500 MG/250 ML BAG IVPB SCH (13:09)
[2024-04-02 19:47] LABS: HEMATOCRIT 23.8 % (35.4-49); HEMOGLOBIN 8.4 GM/dL (11.7-16.9); MCH 29.8 pg (25.7-33.7); MCHC 35.4 g/dl (32.0-35.9); MEAN CELL VOLUME 84.4 fl (80-96); MEAN PLT VOLUME 7.1 fl (7.5-11.1); RBC 2.82 M/mm3 (4.00-5.60)
[2024-04-02 20:04] LABS: PLATELET COUNT 26 10^3/uL (134-434); WHITE BLOOD COUNT 1.7 K/mm3 (4.0-10.0)
[2024-04-02 21:07] LABS: ANISOCYTOSIS 0; MACROCYTOSIS 0
[2024-04-02] MEDS: LIDOCAINE PATCH REMOVAL MC SCH (21:39)
[2024-04-03 07:28] LABS: HEMATOCRIT 24.4 % (35.4-49); HEMOGLOBIN 8.8 GM/dL (11.7-16.9); MCH 30.2 pg (25.7-33.7); MCHC 36.1 g/dl (32.0-35.9); MEAN CELL VOLUME 83.6 fl (80-96); MEAN PLT VOLUME 7.3 fl (7.5-11.1); PLATELET COUNT 22 10^3/uL (134-434); RBC 2.92 M/mm3 (4.00-5.60); RDW 14.2 % (11.9-15.9)
[2024-04-03 07:32] LABS: POTASSIUM 3.9 mmol/L (3.5-5.1)
[2024-04-03 07:34] LABS: CALCIUM 8.2 mg/dL (8.5-10.1)
[2024-04-03 07:35] LABS: BLOOD UREA NITROGEN 22.8 mg/dL (7-18)
[2024-04-03 07:38] LABS: CREATININE 0.7 mg/dL (0.55-1.3)
[2024-04-03 07:40] LABS: MAGNESIUM 1.8 mg/dL (1.8-2.4)
[2024-04-03 07:47] LABS: WHITE BLOOD COUNT 1.7 K/mm3 (4.0-10.0)
[2024-04-03] MEDS ORDERED: ACETAMINOPHEN 325 MG TABLET (FP) PO PRN (11:12)
[2024-04-03] MEDS: oxyCODONE HCL 5 MG TABLET PO PRN (14:51)
[2024-04-03 21:53] LABS: HEMATOCRIT 23.6 % (35.4-49); HEMOGLOBIN 8.3 GM/dL (11.7-16.9); MCH 29.6 pg (25.7-33.7); MCHC 35.1 g/dl (32.0-35.9); MEAN CELL VOLUME 84.6 fl (80-96); MEAN PLT VOLUME 8.1 fl (7.5-11.1); PLATELET COUNT 38 10^3/uL (134-434); RBC 2.79 M/mm3 (4.00-5.60); RDW 14.4 % (11.9-15.9)
[2024-04-03 22:00] LABS: WHITE BLOOD COUNT 1.6 K/mm3 (4.0-10.0)
[2024-04-04] MEDS ORDERED: ACETAMINOPHEN 325 MG TABLET (FP) PO PRN ×2 (07:09→16:48)
[2024-04-04] MEDS ORDERED: oxyCODONE HCL 5 MG TABLET PO PRN (07:09)
[2024-04-04 07:47] LABS: HEMATOCRIT 27.2 % (35.4-49); HEMOGLOBIN 9.5 GM/dL (11.7-16.9); MCH 29.8 pg (25.7-33.7); MCHC 34.9 g/dl (32.0-35.9); MEAN CELL VOLUME 85.2 fl (80-96); PLATELET COUNT 37 10^3/uL (134-434); RBC 3.19 M/mm3 (4.00-5.60); RDW 14.7 % (11.9-15.9)
[2024-04-04 07:54] LABS: WHITE BLOOD COUNT 1.8 K/mm3 (4.0-10.0)
[2024-04-04 08:02] LABS: POTASSIUM 4.4 mmol/L (3.5-5.1)
[2024-04-04 08:07] LABS: CALCIUM 8.4 mg/dL (8.5-10.1)
[2024-04-04 08:08] LABS: ALBUMIN 1.9 g/dl (3.4-5.0); BLOOD UREA NITROGEN 15.9 mg/dL (7-18); CREATININE 0.8 mg/dL (0.55-1.3); MAGNESIUM 1.8 mg/dL (1.8-2.4)
[2024-04-04 08:10] LABS: PHOSPHOROUS 2.4 mg/dL (2.5-4.9)
[2024-04-04 08:11] LABS: BILIRUBIN,TOTAL 0.4 mg/dL (0.2-1)
[2024-04-04] MEDS: CEFEPIME 2 GM in DEXTROSE 5%-WATER 100 ML IVPB SCH (09:43)
[2024-04-04] MEDS: LIDOCAINE 5% TOPICAL PATCH TP SCH (09:44)
[2024-04-04] MEDS: TAMSULOSIN HCL 0.4 MG CAP PO SCH (09:44)
[2024-04-04] MEDS: ESCITALOPRAM OXALATE 10 MG TABLET PO SCH (09:44)
[2024-04-04] MEDS: PANTOPRAZOLE SODIUM 40 MG VIAL IVPUSH SCH (09:44)
[2024-04-04] MEDS: FOLIC ACID 1 MG TABLET (FP) PO SCH (09:44)
[2024-04-04] MEDS: FLUCONAZOLE 100 MG TABLET (UD) PO SCH (09:45)
[2024-04-04] MEDS: ACYCLOVIR 400 MG TABLET PO SCH (09:45)
[2024-04-04] MEDS: FENOFIBRIC ACID 135 MG CAP PO SCH (09:45)
[2024-04-04] MEDS ORDERED: MUPIROCIN 2% TOPICAL OINTMENT FOR DECOLONIZATION NS SCH (10:00)
[2024-04-04] MEDS: AZITHROMYCIN IVPB 500 MG/250 ML BAG IVPB SCH (10:49)
[2024-04-04 11:35] LABS: ANISOCYTOSIS 0; MACROCYTOSIS 0
[2024-04-04] MEDS: VANCOMYCIN/WATER FOR INJ (PEG) 1,000 MG/200 ML BAG IVPB SCH (12:07)
[2024-04-04] MEDS: INSULIN ASPART SLIDING SCALE (NOVOLOG) 1 VIAL SQ SCH (12:10)
[2024-04-04] MEDS ORDERED: CHLORHEXIDINE GLUCONATE 4% CLEANSER FOR DECOLONIZATION TP SCH (22:00)
[2024-04-04] MEDS: LIDOCAINE PATCH REMOVAL MC SCH (22:18)
[2024-04-05] MEDS: LEVOTHYROXINE NA 50 MCG TABLET (FP) PO SCH (06:33)
[2024-04-05 08:30] LABS: HEMATOCRIT 28.1 % (35.4-49); HEMOGLOBIN 9.6 GM/dL (11.7-16.9); MCH 29.3 pg (25.7-33.7); MCHC 34.3 g/dl (32.0-35.9); MEAN CELL VOLUME 85.6 fl (80-96); RBC 3.28 M/mm3 (4.00-5.60); RDW 14.5 % (11.9-15.9)
[2024-04-05 08:31] LABS: POTASSIUM 3.8 mmol/L (3.5-5.1)
[2024-04-05 08:34] LABS: ALBUMIN 1.9 g/dl (3.4-5.0); BLOOD UREA NITROGEN 13.9 mg/dL (7-18); CALCIUM 8.4 mg/dL (8.5-10.1); MAGNESIUM 1.8 mg/dL (1.8-2.4)
[2024-04-05 08:37] LABS: CREATININE 0.6 mg/dL (0.55-1.3)
[2024-04-05 08:39] LABS: BILIRUBIN,TOTAL 0.4 mg/dL (0.2-1)
[2024-04-05 09:01] LABS: PLATELET COUNT 31 10^3/uL (134-434); WHITE BLOOD COUNT 1.6 K/mm3 (4.0-10.0)
[2024-04-05] MEDS ORDERED: CEFEPIME HCL 2 GM VIAL (RESTRICTED TO ID) ONE ×2 (09:29→17:12)
[2024-04-05 09:46] LABS: ANISOCYTOSIS 0; MACROCYTOSIS 0
[2024-04-05] MEDS: amLODIPine BESYLATE 10 MG TABLET (FP) PO SCH (10:03)
[2024-04-06 08:58] LABS: HEMATOCRIT 26.6 % (35.4-49); HEMOGLOBIN 9.1 GM/dL (11.7-16.9); MCH 29.2 pg (25.7-33.7); MCHC 34.4 g/dl (32.0-35.9); MEAN CELL VOLUME 85.1 fl (80-96); MEAN PLT VOLUME 8.2 fl (7.5-11.1); RBC 3.13 M/mm3 (4.00-5.60); RDW 14.4 % (11.9-15.9)
[2024-04-06 09:14] LABS: PLATELET COUNT 19 10^3/uL (134-434); WHITE BLOOD COUNT 1.7 K/mm3 (4.0-10.0)
[2024-04-06 09:23] LABS: BLOOD UREA NITROGEN 13.6 mg/dL (7-18); CALCIUM 8.4 mg/dL (8.5-10.1); MAGNESIUM 1.8 mg/dL (1.8-2.4)
[2024-04-06 09:26] LABS: CREATININE 0.7 mg/dL (0.55-1.3)
[2024-04-06 09:28] LABS: BILIRUBIN,TOTAL 0.3 mg/dL (0.2-1); TOT PROT 6.4 g/dl (6.4-8.2)
[2024-04-06 09:57] LABS: ANISOCYTOSIS 0; MACROCYTOSIS 0
[2024-04-07 09:31] LABS: HEMATOCRIT 27.5 % (35.4-49); HEMOGLOBIN 9.3 GM/dL (11.7-16.9); MCH 29.2 pg (25.7-33.7); MCHC 33.9 g/dl (32.0-35.9); MEAN CELL VOLUME 86.3 fl (80-96); MEAN PLT VOLUME 7.4 fl (7.5-11.1); PLATELET COUNT 43 10^3/uL (134-434); RBC 3.19 M/mm3 (4.00-5.60)
[2024-04-07 09:47] LABS: POTASSIUM 4.1 mmol/L (3.5-5.1)
[2024-04-07 09:48] LABS: WHITE BLOOD COUNT 1.6 K/mm3 (4.0-10.0)
[2024-04-07 09:58] LABS: ALBUMIN 2.2 g/dl (3.4-5.0); BLOOD UREA NITROGEN 15.5 mg/dL (7-18)
[2024-04-07 10:00] LABS: CALCIUM 8.6 mg/dL (8.5-10.1)
[2024-04-07 10:01] LABS: CREATININE 0.8 mg/dL (0.55-1.3)
[2024-04-07 10:03] LABS: BILIRUBIN,TOTAL 0.3 mg/dL (0.2-1); TOT PROT 7.1 g/dl (6.4-8.2)
[2024-04-07 10:29] LABS: ANISOCYTOSIS 0; MACROCYTOSIS 0
[2024-04-07] MEDS: MELATONIN 1 MG TABLET PO PRN (21:41)
[2024-04-08 10:01] LABS: ALBUMIN 2.2 g/dl (3.4-5.0); CALCIUM 8.8 mg/dL (8.5-10.1)
[2024-04-08 10:03] LABS: CREATININE 0.8 mg/dL (0.55-1.3)
[2024-04-08 10:06] LABS: BILIRUBIN,TOTAL 0.3 mg/dL (0.2-1); TOT PROT 6.6 g/dl (6.4-8.2)
[2024-04-09 08:29] LABS: HEMATOCRIT 26.4 % (35.4-49); MCH 29.3 pg (25.7-33.7); MCHC 34.1 g/dl (32.0-35.9); MEAN CELL VOLUME 86.1 fl (80-96); MEAN PLT VOLUME 7.5 fl (7.5-11.1); RBC 3.07 M/mm3 (4.00-5.60); RDW 14.2 % (11.9-15.9)
[2024-04-09 08:51] LABS: PLATELET COUNT 19 10^3/uL (134-434); WHITE BLOOD COUNT 1.6 K/mm3 (4.0-10.0)
[2024-04-09 09:40] LABS: POTASSIUM 4.1 mmol/L (3.5-5.1)
[2024-04-09 09:43] LABS: ALBUMIN 2.3 g/dl (3.4-5.0); BLOOD UREA NITROGEN 18.6 mg/dL (7-18)
[2024-04-09 09:46] LABS: CREATININE 0.8 mg/dL (0.55-1.3)
[2024-04-09 09:47] LABS: BILIRUBIN,TOTAL 0.3 mg/dL (0.2-1); TOT PROT 7.5 g/dl (6.4-8.2)
[2024-04-10 09:35] LABS: POTASSIUM 4.2 mmol/L (3.5-5.1)
[2024-04-10 09:41] LABS: HEMATOCRIT 23.8 % (35.4-49); HEMOGLOBIN 8.3 GM/dL (11.7-16.9); MCH 29.3 pg (25.7-33.7); MCHC 34.7 g/dl (32.0-35.9); MEAN CELL VOLUME 84.5 fl (80-96); MEAN PLT VOLUME 8.2 fl (7.5-11.1); RBC 2.82 M/mm3 (4.00-5.60); RDW 13.9 % (11.9-15.9)
[2024-04-10 09:52] LABS: PLATELET COUNT 16 10^3/uL (134-434); WHITE BLOOD COUNT 1.5 K/mm3 (4.0-10.0)
[2024-04-10 10:02] LABS: ALBUMIN 2.2 g/dl (3.4-5.0); BLOOD UREA NITROGEN 22.3 mg/dL (7-18); CALCIUM 8.9 mg/dL (8.5-10.1)
[2024-04-10 10:03] LABS: CREATININE 0.9 mg/dL (0.55-1.3)
[2024-04-10 10:05] LABS: BILIRUBIN,TOTAL 0.2 mg/dL (0.2-1)
[2024-04-10 12:04] LABS: ANISOCYTOSIS 0; HELMET CELLS 0; HOWELL-JOLLY BODIES 0; MACROCYTOSIS 0; OVALOCYTE 0; ROULEAU 0; SICKELED CELLS 0; TARGET CELLS 0; TEAR DROP CELLS 0; TOXIC GRANULATION 0
[2024-04-11 10:23] LABS: HEMATOCRIT 21.8 % (35.4-49); HEMOGLOBIN 7.6 GM/dL (11.7-16.9); MCH 29.7 pg (25.7-33.7); MCHC 34.8 g/dl (32.0-35.9); MEAN CELL VOLUME 85.4 fl (80-96); MEAN PLT VOLUME 7.7 fl (7.5-11.1); PLATELET COUNT 89 10^3/uL (134-434); RBC 2.55 M/mm3 (4.00-5.60); RDW 14.2 % (11.9-15.9)
[2024-04-11 10:28] LABS: WHITE BLOOD COUNT 1.6 K/mm3 (4.0-10.0)
[2024-04-11 10:46] LABS: POTASSIUM 4.3 mmol/L (3.5-5.1)
[2024-04-11 10:48] LABS: ALBUMIN 2.6 g/dl (3.4-5.0); BLOOD UREA NITROGEN 29.7 mg/dL (7-18); CALCIUM 9.4 mg/dL (8.5-10.1); MAGNESIUM 2.2 mg/dL (1.8-2.4)
[2024-04-11 10:51] LABS: CREATININE 0.9 mg/dL (0.55-1.3)
[2024-04-11 10:53] LABS: BILIRUBIN,TOTAL 0.2 mg/dL (0.2-1); TOT PROT 7.4 g/dl (6.4-8.2)
[2024-04-11 11:48] LABS: ANISOCYTOSIS 0; MACROCYTOSIS 0
[2024-04-11 14:26] LABS: EPI CELLS 12 /uL (0-25.1); HYALINE CASTS 1 /uL (0-3.1); PH,URINE 6.5 (5.0-8.0); URINE APPEARANCE CLEAR; URINE BACTERIA 1 /uL (0-1359); URINE BILIRUBIN NEGATIVE (NEGATIVE); URINE COLOR YELLOW; URINE GLUCOSE (UA) NEGATIVE (NEGATIVE); URINE KETONE TRACE (NEGATIVE); URINE LEUK ESTERASE NEGATIVE (NEGATIVE); URINE NITRITE NEGATIVE (NEGATIVE); URINE PROTEIN 2+ (NEGATIVE); URINE RBC 19 /uL (0-23.9); URINE UROBILINOGEN 0.2 mg/dL (0.2-1.0); URINE WBC 18 /uL (0-25.8)
[2024-04-11 16:30] VITALS: BMI 24.3
[2024-04-12 10:15] LABS: HEMATOCRIT 21.2 % (35.4-49); HEMOGLOBIN 7.4 GM/dL (11.7-16.9); MCH 29.7 pg (25.7-33.7); MCHC 34.7 g/dl (32.0-35.9); MEAN CELL VOLUME 85.6 fl (80-96); MEAN PLT VOLUME 7.6 fl (7.5-11.1); PLATELET COUNT 64 10^3/uL (134-434); RBC 2.48 M/mm3 (4.00-5.60); RDW 13.8 % (11.9-15.9)
[2024-04-12 10:18] LABS: WHITE BLOOD COUNT 1.4 K/mm3 (4.0-10.0)
[2024-04-12 10:39] LABS: POTASSIUM 4.3 mmol/L (3.5-5.1)
[2024-04-12] MEDS: MULTIVITAMINS (DAILY MVI) TABLET (FP) PO SCH (10:40)
[2024-04-12 10:45] LABS: CALCIUM 9.4 mg/dL (8.5-10.1)
[2024-04-12 10:46] LABS: ALBUMIN 2.6 g/dl (3.4-5.0); BLOOD UREA NITROGEN 29.4 mg/dL (7-18); MAGNESIUM 2.1 mg/dL (1.8-2.4)
[2024-04-12 10:48] LABS: CREATININE 0.9 mg/dL (0.55-1.3)
[2024-04-12 10:49] LABS: BILIRUBIN,TOTAL 0.3 mg/dL (0.2-1); TOT PROT 7.6 g/dl (6.4-8.2)
[2024-04-12 11:54] LABS: ANISOCYTOSIS 0; MACROCYTOSIS 0
[2024-04-12 14:05] VITALS: BP 130/85; PULSE 85
[2024-04-12 16:24] VITALS: RESP 20; TEMP 98
== END 2024-04-12 18:38 | disposition short-term general hospital (02) | DRG 834 ==
LOC: JER 08:37 → JERBED 16:10 → JICU 17:32 → J8W 04-03 23:53
PROVIDERS: ADMIT Internal Medicine Pulmonary Disease; ATTEND Nurse Practitioner Family
PROC: 30233N1 Transfusion of Nonautologous Red Blood Cells into Peripheral Vein, Percutaneous Approach (ICD-10-PCS; principal; 2024-04-01)
PROC: 30233R1 Transfusion of Nonautologous Platelets into Peripheral Vein, Percutaneous Approach (ICD-10-PCS; 2024-04-01)
DX: C92.00 Acute myeloblastic leukemia, not having achieved remission (principal); E43 Unspecified severe protein-calorie malnutrition; J18.9 Pneumonia, unspecified organism; D61.818 Other pancytopenia; N17.9 Acute kidney failure, unspecified; E87.20 Acidosis, unspecified; E87.1 Hypo-osmolality and hyponatremia; D46.9 Myelodysplastic syndrome, unspecified; E11.9 Type 2 diabetes mellitus without complications; E03.9 Hypothyroidism, unspecified; D50.9 Iron deficiency anemia, unspecified; K31.819 Angiodysplasia of stomach and duodenum without bleeding; I44.4 Left anterior fascicular block; E88.09 Other disorders of plasma-protein metabolism, not elsewhere classified; Z68.24 Body mass index [BMI] 24.0-24.9, adult; I10 Essential (primary) hypertension
CPT/HCPCS: 0241U-QW; 36415; 36430; 36511; 71045-TC-FY; 71250-TC; 80048; 80053; 81003; 82570; 82962; 83036; 83735; 84100; 84300; 84484; 85025; 85027; 85045; 85610; 85730; 86480; 86850; 86900; 86901; 86922; 87040; 87070; 87086; 87205; 87305; 87635; 87899; 88300-TC; 93005; 93010; 97116-GP; 97161-GP; 99285-25; G0480; J0131; P9034; P9037; P9038; P9058

== ENCOUNTER 2024-09-09 12:00 | Inpatient (IN) | payer MEDICARE ==
[2024-09-09] MEDS ORDERED: ACETAMINOPHEN INJECTION 100 ML ONE (13:52)
[2024-09-09 13:55] LABS: HEMATOCRIT 23.6 % (35.4-49); HEMOGLOBIN 7.9 GM/dL (11.7-16.9); MCH 34.1 pg (25.7-33.7); MCHC 33.6 g/dl (32.0-35.9); MEAN CELL VOLUME 101.5 fl (80-96); MEAN PLT VOLUME 8.5 fl (7.5-11.1); RBC 2.33 M/mm3 (4.00-5.60); RDW 19.6 % (11.9-15.9); WHITE BLOOD COUNT 2.4 K/mm3 (4.0-10.0)
[2024-09-09] MEDS: ACETAMINOPHEN 1000 MG/100 ML BAG IVPB ONE (13:57)
[2024-09-09] MEDS: SODIUM CHLORIDE 0.9% 500 ML INFUS.BAG IV ONE (13:57)
[2024-09-09 13:59] LABS: PLATELET COUNT 23 10^3/uL (134-434)
[2024-09-09 14:07] LABS: INR 1.24 (0.83-1.09); PROTHROMBIN TIME (PATIENT) 13.9 SEC (9.7-13.0)
[2024-09-09 14:10] LABS: ACTIVATED PTT 32.5 SECONDS (25.2-36.5)
[2024-09-09 14:23] LABS: POTASSIUM 4.2 mmol/L (3.5-5.1)
[2024-09-09 14:24] LABS: CALCIUM 8.9 mg/dL (8.5-10.1)
[2024-09-09 14:25] LABS: ALBUMIN 2.4 g/dl (3.4-5.0); BLOOD UREA NITROGEN 31.4 mg/dL (7-18)
[2024-09-09 14:30] LABS: BILIRUBIN,TOTAL 0.4 mg/dL (0.2-1); TOT PROT 7.7 g/dl (6.4-8.2)
[2024-09-09 15:07] LABS: PLATELET ESTIMATE DECREASED
[2024-09-09] MEDS ORDERED: levETIRAcetam 500 MG/5 ML INJECTION VIAL IVPB ONE (16:52)
[2024-09-09] MEDS: levETIRAcetam 500 MG/5 ML INJECTION VIAL IVPB ONE (17:00)
[2024-09-09] MEDS: MUPIROCIN 2% TOPICAL OINTMENT FOR DECOLONIZATION NS SCH (21:05)
[2024-09-09] MEDS: CHLORHEXIDINE GLUCONATE 4% CLEANSER FOR DECOLONIZATION TP SCH (21:06)
[2024-09-09 22:44] VITALS: BMI 19.1
[2024-09-09] MEDS: ACETAMINOPHEN 1000 MG/100 ML BAG IVPB PRN (23:46)
[2024-09-10 03:48] LABS: PH,URINE 5.5 (5.0-8.0); URINE APPEARANCE CLEAR; URINE BILIRUBIN NEGATIVE (NEGATIVE); URINE COLOR YELLOW; URINE GLUCOSE (UA) NEGATIVE (NEGATIVE); URINE KETONE NEGATIVE (NEGATIVE); URINE LEUK ESTERASE NEGATIVE (NEGATIVE); URINE NITRITE NEGATIVE (NEGATIVE); URINE PROTEIN NEGATIVE (NEGATIVE); URINE UROBILINOGEN 0.2 mg/dL (0.2-1.0)
[2024-09-10 03:56] LABS: EPI CELLS 3.9 /uL (0-25.1); HYALINE CASTS 0.41 /uL (0-3.1); URINE BACTERIA 3.7 /uL (0-1359); URINE RBC 25.2 /uL (0-23.9); URINE WBC 10.8 /uL (0-25.8)
[2024-09-10] MEDS: LEVOTHYROXINE NA 50 MCG TABLET (FP) PO SCH (06:00)
[2024-09-10 07:11] LABS: HEMATOCRIT 24.7 % (35.4-49); HEMOGLOBIN 8.2 GM/dL (11.7-16.9); MCH 33.9 pg (25.7-33.7); MCHC 33.1 g/dl (32.0-35.9); MEAN CELL VOLUME 102.3 fl (80-96); MEAN PLT VOLUME 9.3 fl (7.5-11.1); PLATELET COUNT 55 10^3/uL (134-434); RBC 2.41 M/mm3 (4.00-5.60); RDW 19.7 % (11.9-15.9)
[2024-09-10 07:17] LABS: POTASSIUM 3.6 mmol/L (3.5-5.1)
[2024-09-10 07:19] LABS: ALBUMIN 2.4 g/dl (3.4-5.0); CALCIUM 8.9 mg/dL (8.5-10.1)
[2024-09-10 07:20] LABS: BLOOD UREA NITROGEN 28.7 mg/dL (7-18)
[2024-09-10 07:23] LABS: CREATININE 0.8 mg/dL (0.55-1.3); PHOSPHOROUS 2.9 mg/dL (2.5-4.9)
[2024-09-10 07:24] LABS: BILIRUBIN,TOTAL 0.4 mg/dL (0.2-1); TOT PROT 7.3 g/dl (6.4-8.2)
[2024-09-10 07:30] LABS: WHITE BLOOD COUNT 1.6 K/mm3 (4.0-10.0)
[2024-09-10] MEDS: PANTOPRAZOLE 40 MG TABLET PO SCH (09:57)
[2024-09-10] MEDS: TAMSULOSIN HCL 0.4 MG CAP PO SCH (09:57)
[2024-09-10] MEDS: levETIRAcetam 500 MG TABLET (FP) PO SCH ×2 (12:19→21:09)
[2024-09-10] MEDS: HALOPERIDOL LACTATE 5 MG/ML IM ONE (20:38)
[2024-09-11 00:46] LABS: BASO % 0.2 % (0-2.0); EOS % 0.6 % (0-4.5); HEMATOCRIT 21.4 % (35.4-49); HEMOGLOBIN 7.1 GM/dL (11.7-16.9); MCH 33.8 pg (25.7-33.7); MEAN CELL VOLUME 102.4 fl (80-96); MEAN PLT VOLUME 8.1 fl (7.5-11.1); MONO % 56.4 % (3.8-10.2); NEUT % 24.8 % (42.8-82.8); PLATELET COUNT 107 10^3/uL (134-434); RBC 2.08 M/mm3 (4.00-5.60); RDW 19.2 % (11.9-15.9); WHITE BLOOD COUNT 2.6 K/mm3 (4.0-10.0)
[2024-09-11 02:09] LABS: ANISOCYTOSIS 3+
[2024-09-11 02:52] LABS: MACROCYTOSIS 0
[2024-09-11 03:24] LABS: HEMATOCRIT 24.3 % (35.4-49); MCH 33.7 pg (25.7-33.7); MEAN CELL VOLUME 102.2 fl (80-96); MEAN PLT VOLUME 7.8 fl (7.5-11.1); PLATELET COUNT 105 10^3/uL (134-434); RBC 2.38 M/mm3 (4.00-5.60); RDW 19.5 % (11.9-15.9); WHITE BLOOD COUNT 2.2 K/mm3 (4.0-10.0)
[2024-09-11 04:24] LABS: ANISOCYTOSIS 3+; MACROCYTOSIS 3+
[2024-09-11] MEDS: amLODIPine BESYLATE 5 MG TABLET (FP) PO SCH (10:12)
[2024-09-11] MEDS: TAMSULOSIN HCL 0.4 MG CAP PO SCH (10:12)
[2024-09-11] MEDS: LOSARTAN POTASSIUM 50 MG TABLET PO SCH (10:12)
[2024-09-11] MEDS: SODIUM CHLORIDE 1,000 ML IV SCH (14:12)
[2024-09-11] MEDS: AMINO ACIDS/PROTEIN HYDROLYS 30 ML LIQUID.PKT PO SCH (17:58)
[2024-09-11] MEDS: levETIRAcetam 500 MG TABLET (FP) PO SCH (21:37)
[2024-09-12 07:43] LABS: HEMATOCRIT 21.1 % (35.4-49); HEMOGLOBIN 7.1 GM/dL (11.7-16.9); MCH 33.6 pg (25.7-33.7); MCHC 33.5 g/dl (32.0-35.9); MEAN CELL VOLUME 100.5 fl (80-96); MEAN PLT VOLUME 8.6 fl (7.5-11.1); PLATELET COUNT 74 10^3/uL (134-434); WHITE BLOOD COUNT 2.1 K/mm3 (4.0-10.0)
[2024-09-12 08:00] LABS: POTASSIUM 3.3 mmol/L (3.5-5.1)
[2024-09-12 08:02] LABS: ALBUMIN 2.4 g/dl (3.4-5.0); CALCIUM 8.5 mg/dL (8.5-10.1); MAGNESIUM 1.7 mg/dL (1.8-2.4)
[2024-09-12 08:05] LABS: CREATININE 0.6 mg/dL (0.55-1.3)
[2024-09-12 08:06] LABS: PHOSPHOROUS 2.3 mg/dL (2.5-4.9)
[2024-09-12 08:07] LABS: BILIRUBIN,TOTAL 0.5 mg/dL (0.2-1)
[2024-09-12 09:15] LABS: ANISOCYTOSIS 1+; MACROCYTOSIS 2+
[2024-09-12] MEDS: ZINC SULFATE 220 MG CAPSULE (FP) PO SCH (10:14)
[2024-09-12] MEDS: ASCORBIC ACID 500 MG TABLET (FP) PO SCH (10:14)
[2024-09-12] MEDS: MULTIVITAMINS (DAILY MVI) TABLET (FP) PO SCH (10:14)
[2024-09-12] MEDS: MAGNESIUM OXIDE 400 MG TABLET (FP) PO ONE (10:17)
[2024-09-12 17:02] LABS: INR 1.25 (0.83-1.09); PROTHROMBIN TIME (PATIENT) 14.3 SEC (9.7-13.0)
[2024-09-12 17:04] LABS: ACTIVATED PTT 33.5 SECONDS (25.2-36.5)
[2024-09-13 08:25] LABS: HEMATOCRIT 21.4 % (35.4-49); HEMOGLOBIN 7.2 GM/dL (11.7-16.9); MCH 34.4 pg (25.7-33.7); MCHC 33.5 g/dl (32.0-35.9); MEAN CELL VOLUME 102.6 fl (80-96); MEAN PLT VOLUME 9.4 fl (7.5-11.1); PLATELET COUNT 63 10^3/uL (134-434); RBC 2.08 M/mm3 (4.00-5.60); RDW 19.3 % (11.9-15.9); WHITE BLOOD COUNT 2.3 K/mm3 (4.0-10.0)
[2024-09-13 08:42] LABS: POTASSIUM 3.1 mmol/L (3.5-5.1)
[2024-09-13 08:45] LABS: CALCIUM 8.7 mg/dL (8.5-10.1)
[2024-09-13 08:47] LABS: ALBUMIN 2.4 g/dl (3.4-5.0); BLOOD UREA NITROGEN 17.2 mg/dL (7-18); MAGNESIUM 1.8 mg/dL (1.8-2.4)
[2024-09-13 08:49] LABS: CREATININE 0.7 mg/dL (0.55-1.3); PHOSPHOROUS 2.2 mg/dL (2.5-4.9)
[2024-09-13 08:50] LABS: BILIRUBIN,TOTAL 0.4 mg/dL (0.2-1)
[2024-09-13 08:52] LABS: TOT PROT 7.4 g/dl (6.4-8.2)
[2024-09-13 09:36] LABS: ANISOCYTOSIS 1+; MACROCYTOSIS 1+
[2024-09-13] MEDS: PANTOPRAZOLE 40 MG TABLET PO SCH (09:44)
[2024-09-13] MEDS ORDERED: MUPIROCIN 2% TOPICAL OINTMENT FOR DECOLONIZATION NS SCH (10:00)
[2024-09-13] MEDS ORDERED: ACETAMINOPHEN 325 MG TABLET (FP) PO PRN (12:11)
[2024-09-13] MEDS: POTASSIUM CHLORIDE ORAL LIQUID 20 MEQ/15 ML PO ONE (17:18)
[2024-09-13] MEDS ORDERED: CHLORHEXIDINE GLUCONATE 4% CLEANSER FOR DECOLONIZATION TP SCH (22:00)
[2024-09-14] MEDS: LEVOTHYROXINE NA 50 MCG TABLET (FP) PO SCH (06:13)
[2024-09-14 08:52] LABS: HEMATOCRIT 20.7 % (35.4-49); HEMOGLOBIN 7.3 GM/dL (11.7-16.9); MCH 35.7 pg (25.7-33.7); MCHC 35.2 g/dl (32.0-35.9); MEAN CELL VOLUME 101.4 fl (80-96); MEAN PLT VOLUME 8.9 fl (7.5-11.1); PLATELET COUNT 46 10^3/uL (134-434); RBC 2.04 M/mm3 (4.00-5.60); RDW 18.9 % (11.9-15.9); WHITE BLOOD COUNT 2.4 K/mm3 (4.0-10.0)
[2024-09-14 09:04] LABS: POTASSIUM 3.4 mmol/L (3.5-5.1)
[2024-09-14 09:06] LABS: INR 1.25 (0.83-1.09); PROTHROMBIN TIME (PATIENT) 14.3 SEC (9.7-13.0)
[2024-09-14 09:07] LABS: INR 1.28 (0.83-1.09); PROTHROMBIN TIME (PATIENT) 14.6 SEC (9.7-13.0)
[2024-09-14 09:10] LABS: ACTIVATED PTT 31.7 SECONDS (25.2-36.5); BLOOD UREA NITROGEN 24.9 mg/dL (7-18); CALCIUM 8.5 mg/dL (8.5-10.1); MAGNESIUM 1.7 mg/dL (1.8-2.4)
[2024-09-14 09:14] LABS: CREATININE 0.7 mg/dL (0.55-1.3); PHOSPHOROUS 1.7 mg/dL (2.5-4.9)
[2024-09-14 12:39] LABS: ANISOCYTOSIS 0; MACROCYTOSIS 1+
[2024-09-15] MEDS: POTASSIUM PHOSPHATE 45 MM in DEXTROSE 5%-WATER - 500 ML IVPB ONE (00:56)
[2024-09-15 08:25] LABS: INR 1.33 (0.83-1.09); PROTHROMBIN TIME (PATIENT) 14.9 SEC (9.7-13.0)
[2024-09-15 08:27] LABS: ACTIVATED PTT 32.5 SECONDS (25.2-36.5)
[2024-09-15 08:50] LABS: HEMATOCRIT 25.9 % (35.4-49); HEMOGLOBIN 8.6 GM/dL (11.7-16.9); MCH 33.5 pg (25.7-33.7); MCHC 33.4 g/dl (32.0-35.9); MEAN CELL VOLUME 100.2 fl (80-96); MEAN PLT VOLUME 8.9 fl (7.5-11.1); PLATELET COUNT 58 10^3/uL (134-434); RBC 2.58 M/mm3 (4.00-5.60); WHITE BLOOD COUNT 3.7 K/mm3 (4.0-10.0)
[2024-09-15 09:29] LABS: POTASSIUM 3.5 mmol/L (3.5-5.1)
[2024-09-15 09:41] LABS: ALBUMIN 2.5 g/dl (3.4-5.0); BLOOD UREA NITROGEN 28.9 mg/dL (7-18); CALCIUM 8.8 mg/dL (8.5-10.1)
[2024-09-15 09:45] LABS: CREATININE 0.8 mg/dL (0.55-1.3)
[2024-09-15 09:47] LABS: BILIRUBIN,TOTAL 0.5 mg/dL (0.2-1); TOT PROT 7.6 g/dl (6.4-8.2)
[2024-09-15 09:49] LABS: ANISOCYTOSIS 1+; MACROCYTOSIS 1+
[2024-09-15] MEDS: ACETAMINOPHEN 1000 MG/100 ML BAG IVPB PRN (22:49)
[2024-09-15 23:51] LABS: EPI CELLS >36 /uL (0-25.1); HYALINE CASTS 5 /uL (0-3.1); URINE APPEARANCE TURBID; URINE BILIRUBIN NEGATIVE (NEGATIVE); URINE COLOR DK YELLOW; URINE GLUCOSE (UA) NEGATIVE (NEGATIVE); URINE KETONE NEGATIVE (NEGATIVE); URINE LEUK ESTERASE NEGATIVE (NEGATIVE); URINE NITRITE NEGATIVE (NEGATIVE); URINE PROTEIN 3+ (NEGATIVE)
[2024-09-16] MEDS: levETIRAcetam 500 MG/5 ML INJECTION VIAL IVPB SCH (00:06)
[2024-09-16 00:12] LABS: URINE BACTERIA 4884.6 /uL (0-1359); URINE RBC 21.1 /uL (0-23.9); URINE WBC 82.4 /uL (0-25.8)
[2024-09-16] MEDS: SODIUM CHLORIDE 250 ML IV STA (04:15)
[2024-09-16 07:47] LABS: HEMATOCRIT 28.6 % (35.4-49); HEMOGLOBIN 9.1 GM/dL (11.7-16.9); MCH 32.9 pg (25.7-33.7); MCHC 31.8 g/dl (32.0-35.9); MEAN CELL VOLUME 103.4 fl (80-96); MEAN PLT VOLUME 8.8 fl (7.5-11.1); PLATELET COUNT 54 10^3/uL (134-434); RBC 2.77 M/mm3 (4.00-5.60); RDW 18.7 % (11.9-15.9); WHITE BLOOD COUNT 4.3 K/mm3 (4.0-10.0)
[2024-09-16 08:08] LABS: POTASSIUM 3.4 mmol/L (3.5-5.1)
[2024-09-16 08:16] LABS: ALBUMIN 2.4 g/dl (3.4-5.0); BLOOD UREA NITROGEN 47.5 mg/dL (7-18)
[2024-09-16 08:19] LABS: CREATININE 1.5 mg/dL (0.55-1.3); PHOSPHOROUS 3.8 mg/dL (2.5-4.9)
[2024-09-16 08:21] LABS: BILIRUBIN,TOTAL 0.5 mg/dL (0.2-1); TOT PROT 7.9 g/dl (6.4-8.2)
[2024-09-16] MEDS: FUROSEMIDE 40 MG/4 ML INJECTABLE VIAL IVPUSH ONE ×2 (09:39→10:13)
[2024-09-16 10:09] LABS: ANISOCYTOSIS 1+; MACROCYTOSIS 2+
[2024-09-16] MEDS ORDERED: ALBUTEROL SO4 2.5/IPRATROPIUM 0.5 INH SOL 3 ML VIAL.NEB. NEB PRN (10:54)
[2024-09-16] MEDS: ACETAMINOPHEN 1000 MG/100 ML BAG IVPB ONE (11:00)
[2024-09-16] MEDS ORDERED: ACETAMINOPHEN 1000 MG/100 ML BAG IVPB ONE (11:00)
[2024-09-16] MEDS: METOPROLOL TARTRATE 5 MG/5 ML VIAL IVPUSH ONE (11:22)
[2024-09-16] MEDS: VANCOMYCIN/WATER FOR INJ (PEG) 1,000 MG/200 ML BAG IVPB ONE (16:43)
[2024-09-16 23:26] VITALS: BP 76/49; PULSE 131; RESP 24; TEMP 101.2
== END 2024-09-16 11:30 | disposition expired | DRG 64 ==
LOC: JER 12:00 → JERBED 17:42 → JICU 18:09 → J4W 09-12 20:04
PROVIDERS: ADMIT Internal Medicine Pulmonary Disease; ATTEND Internal Medicine
PROC: 30233R1 Transfusion of Nonautologous Platelets into Peripheral Vein, Percutaneous Approach (ICD-10-PCS; principal; 2024-09-09)
PROC: 30233N1 Transfusion of Nonautologous Red Blood Cells into Peripheral Vein, Percutaneous Approach (ICD-10-PCS; 2024-09-14)
DX: I62.01 Nontraumatic acute subdural hemorrhage (principal); E43 Unspecified severe protein-calorie malnutrition; J96.01 Acute respiratory failure with hypoxia; Z68.1 Body mass index [BMI] 19.9 or less, adult; C92.00 Acute myeloblastic leukemia, not having achieved remission; D61.818 Other pancytopenia; R78.81 Bacteremia; I10 Essential (primary) hypertension; E03.9 Hypothyroidism, unspecified; E11.9 Type 2 diabetes mellitus without complications; D69.6 Thrombocytopenia, unspecified; N40.0 Benign prostatic hyperplasia without lower urinary tract symptoms; R41.0 Disorientation, unspecified; R00.0 Tachycardia, unspecified; R50.9 Fever, unspecified
CPT/HCPCS: 0241U-QW; 36415; 36430; 36511; 70450-TC; 71045-TC-FY; 80048; 80053; 81003; 82272; 82962; 83036; 83735; 84100; 84484; 85025; 85027; 85384; 85610; 85730; 86850; 86900; 86901; 86922; 87040; 87086; 87186; 87481; 88300-TC; 93005; 93010; 95816; 97116-GP; 97162-GP; 99291; J0131; P9034; P9037; P9038; P9058